=== PATIENT | male | born 1995 | race Two or more races ===

== ENCOUNTER 2018-01-03 21:44 | Emergency (ER) | payer OTHER ==
[~2018-01-03] VITALS: Ht 170.2 cm; Wt 68.0 kg
[2018-01-03 22:44] VITALS: BP 110/75
[2018-01-04] MEDS ORDERED: SUMAtriptan SUCCINATE 6 MG/0.5 ML VL SC ONE (00:45)
[2018-01-04] MEDS ORDERED: ACETAMINOPHEN 325 MG TAB PO ONE (01:30)
== END 2018-01-04 00:56 | disposition home or self-care (01) ==
LOC: ER 21:44
DX: J02.9 Acute pharyngitis, unspecified (principal); R51 Headache
CPT/HCPCS: 96372; 99283; J3030